=== PATIENT | female | born 1970 | race African-American/Black ===

== ENCOUNTER 2016-03-16 16:54 | Emergency (ER) | payer OTHER ==
[~2016-03-16] VITALS: Ht 152.4 cm; Wt 74.0 kg
[~2016-03-16 16:54] MED LIST: ZYRTEC10 M2 PO
[2016-03-16 17:23] VITALS: BP 132/70
== END 2016-03-16 20:43 | disposition home or self-care (01) ==
LOC: EME 16:54
DX: S63.619A Unspecified sprain of unspecified finger, initial encounter (principal); X50.9XXA Other and unspecified overexertion or strenuous movements or postures, initial encounter; Y92.129 Unspecified place in nursing home as the place of occurrence of the external cause; Y99.0 Civilian activity done for income or pay
CPT/HCPCS: 73130; 99281; 99283